=== PATIENT | female | born 1995 | race African-American/Black ===

== ENCOUNTER 2020-12-23 11:29 | Emergency (ER) | payer OTHER ==
[~2020-12-23] VITALS: Ht 157.5 cm; Wt 56.7 kg
[2020-12-23] MEDS ORDERED: LEVSIN0.125 MG PO (17:00)
[2020-12-23] MEDS ORDERED: INTESTINEX680 M1 PO (17:00)
== END 2020-12-23 17:19 | disposition home or self-care (01) ==
LOC: ER 11:29
DX: A05.9 Bacterial foodborne intoxication, unspecified (principal)